=== PATIENT | female | born 1960 | race Caucasian/White ===

== ENCOUNTER 2022-03-28 14:37 | Emergency (ER) | payer BC ==
[~2022-03-28] VITALS: Ht 152.4 cm; Wt 62.7 kg
[2022-03-28] VITALS (15 sets, daily range): BP systolic 161–188; BP diastolic 72–90
[2022-03-28] MEDS ORDERED: TRESIBA FL200 UNIT/M IN (14:52)
[2022-03-28] MEDS ORDERED: COLESTID1 GM PO (14:53)
[2022-03-28] MEDS ORDERED: CYCLOBENZAPRINE10 MG PO (14:53)
[2022-03-28] MEDS ORDERED: METOPROLOL SUCC50 MG PO (14:54)
[2022-03-28] MEDS ORDERED: PRAVASTATIN20 MG PO (14:54)
[2022-03-28] MEDS ORDERED: LISINOP/HCTZ1 TAB PO (14:55)
[2022-03-28 15:39] LABS: HEMOGLOBIN 13.8 g/dl (12.0-16.0); IMMATURE GRANULOCYTES 0.1 % (0.0-5.0); MEAN CELL VOLUME 86.2 fL CALC (80.0-100.0); MEAN CORPUSCULAR HGB 28.3 pG CALC (26.0-32.0); MEAN CORPUSCULAR HGB CONC 32.9 g/dL CAL (32.0-36.0); NEUT# 5.83 thou/uL (2.00-7.15); RED BLOOD COUNT 4.87 mill/uL (4.20-5.60); RED CELL DISTRI WIDTH 12.3 % (11.5-15.5)
[2022-03-28 16:03] LABS: ALBUMIN 4.4 g/dL (3.2-5.0); ALKALINE PHOSPHATASE 131 u/l (38-126); ANION GAP 16 (6-22 (CALC)); BILIRUBIN, TOTAL 0.4 mg/dL (0.0-1.4); BUN 15 mg/dL (7-17); BUN/CREATININE RATIO 22 (12-20 (CALC)); CARBON DIOXIDE 24 mmol/l (22-30); CHLORIDE 104 mmol/l (95-108); CREATININE 0.7 mg/dL (0.5-1.0); GFR FOR AFR.AMER. > 60 ML/MIN (>=60 (CALC)); GFR OTHER RACES > 60 ML/MIN (>=60 (CALC)); LIPASE 52 u/l (23-300); POTASSIUM 3.5 mmol/l (3.5-5.1); SGOT/AST 73 u/l (14-36); SODIUM 140 mmol/l (137-146); TOTAL PROTEIN 7.6 g/dL (6.3-8.2)
[2022-03-28 17:43] LABS: URINE BILIRUBIN - DIPSTICK NEGATIVE (NEGATIVE); URINE BLOOD DIPSTICK NEGATIVE (NEGATIVE); URINE COLOR YELLOW; URINE GLUCOSE - DIPSTICK 100 mg/dL (NEGATIVE); URINE KETONE 15 mg/dL (NEGATIVE); URINE LEUK ESTERASE NEGATIVE (NEGATIVE); URINE PROTEIN - DIPSTICK NEGATIVE (NEG-TRACE); URINE UROBILINOGEN - DIPSTICK 0.2 E.U./dL (0.2)
[2022-03-28 17:47] LABS: URINE NITRITE - DIPSTICK NEGATIVE (Negative)
[2022-03-28] MEDS ORDERED: ZOFRAN4 MG/TAB PO (19:13)
[2022-03-28] MEDS ORDERED: CIPROFLOXACN500 MG PO (19:13)
[2022-03-28] MEDS ORDERED: METRONIDAZOLE500 MG PO (19:13)
== END 2022-03-28 19:48 | disposition home or self-care (01) | DRG 392 ==
LOC: ED 14:37
PROVIDERS: Family Medicine
DX: R11.2 Nausea with vomiting, unspecified (principal); R10.9 Unspecified abdominal pain; E11.9 Type 2 diabetes mellitus without complications; I10 Essential (primary) hypertension; Z95.5 Presence of coronary angioplasty implant and graft; I25.2 Old myocardial infarction; E78.5 Hyperlipidemia, unspecified; Z79.4 Long term (current) use of insulin
CPT/HCPCS: Q9967

== ENCOUNTER 2024-03-30 09:20 | Emergency (ER) | payer OTHER ==
[2024-03-30] VITALS (7 sets, daily range): BP systolic 122–193; BP diastolic 62–79
[~2024-03-30] VITALS: Ht 152.4 cm; Wt 63.9 kg
[~2024-03-30 09:20] MED LIST: CIPROFLOXACN500 MG PO; COLESTID1 GM PO; COLESTIPOL1 GM PO; CYCLOBENZAPRINE10 MG PO; LANTUS100 UNIT SC; LISINOP/HCTZ1 TA1 PO; LISINOPRIL10 MG PO; METOPROL TAR25 MG PO; METRONIDAZOLE500 MG PO; ONDANSETRON4 MG PO; PROTONIX40 M2 PO; ROSUVASTATIN CA20 MG PO; TRESIBA FL200 UNIT/M IN; ZOFRAN4 MG/TAB PO
[2024-03-30] MEDS ORDERED: ALUM & MAG HYDROX-SIMETHICONE 30 ML PO ONE (09:45)
[2024-03-30] MEDS ORDERED: LIDOCAINE VISCOUS 2% 15 ML UDC PO ONE (09:45)
[2024-03-30] MEDS ORDERED: ONDANSETRON HCl 4 MG/2 ML SDV IV ONE (09:45)
[2024-03-30] MEDS ORDERED: SODIUM CHLORIDE 0.9% 1,000 ML IV ONE (09:45)
[2024-03-30 09:50] LABS: BASO% 0.9 % (0-3); EOS% 3.5 % (0-8); IMMATURE GRANULOCYTES 0.2 % (0.0-5.0); LYMPH% 20.1 % (15-41); MEAN CELL VOLUME 90.1 fL CALC (80.0-100.0); MEAN CORPUSCULAR HGB 28.2 pG CALC (26.0-32.0); MEAN CORPUSCULAR HGB CONC 31.3 g/dL CAL (32.0-36.0); MONO% 6.3 % (2-13); NEUT# 6.19 thou/uL (2.00-7.15); RED BLOOD COUNT 5.36 mill/uL (4.20-5.60); RED CELL DISTRI WIDTH 13.1 % (11.5-15.5); URINE BLOOD DIPSTICK Negative (NEGATIVE); URINE GLUCOSE - DIPSTICK 100 mg/dL (NEGATIVE); URINE KETONE Trace mg/dL (NEGATIVE); URINE LEUK ESTERASE Negative (NEGATIVE); URINE NITRITE - DIPSTICK Negative (Negative); URINE PH 5.5 (4.5-8.0); URINE PROTEIN - DIPSTICK 100 mg/dL (NEG-TRACE); URINE SPECIFIC GRAVITY >=1.030; URINE UROBILINOGEN - DIPSTICK 0.2 E.U./dL (0.2)
[2024-03-30 09:51] LABS: HEMATOCRIT 48.3 % (37.0-47.0); HEMOGLOBIN 15.1 g/dl (12.0-16.0); URINE COLOR Yellow
[2024-03-30 10:01] LABS: URINE SQUAMOUS EPITHELIAL CELL MANY EPI/hpf (0-FEW)
[2024-03-30 10:03] LABS: URINE BACTERIA MODERATE hpf; URINE RBC 0-2 RBC/hpf (0-5)
[2024-03-30 10:04] LABS: ANION GAP 19 (6-22 (CALC)); BUN 24 mg/dL (8-23); BUN/CREATININE RATIO 27 (12-20 (CALC)); CARBON DIOXIDE 28 mmol/l (22-30); CHLORIDE 99 mmol/l (95-108); CREATININE 0.9 mg/dL (0.5-1.0); ESTIMATED GFR 73 ML/MIN (>=90 (CALC)); LIPASE 87 u/l (23-300); POTASSIUM 4.1 mmol/l (3.5-5.1); SODIUM 142 mmol/l (137-146); URINE HYALINE CAST FEW lpf (NONE-RARE); URINE MUCUS FEW hpf (NONE-FEW)
[2024-03-30] MEDS ORDERED: ISOVUE-300 (Iopamidol) 100 ML SDV IV ONE (10:05)
[2024-03-30 10:26] LABS: ALBUMIN 5.1 g/dL (3.2-5.0); ALKALINE PHOSPHATASE 137 u/l (38-126); BILIRUBIN, TOTAL 0.9 mg/dL (0.02-1.3); SGOT/AST 69 u/l (9-36); TOTAL PROTEIN 8.6 g/dL (6.3-8.2)
[2024-03-30] MEDS ORDERED: PROMETHAZINE HCL 25 MG/ML AMP IM ONE (11:50)
[2024-03-30] MEDS ORDERED: NITROFURANTN100 M2 PO (11:52)
== END 2024-03-30 12:11 | disposition home or self-care (01) | DRG 392 ==
LOC: ED 09:20
PROVIDERS: Family Medicine
DX: R11.2 Nausea with vomiting, unspecified (principal)
CPT/HCPCS: Q9967

== ENCOUNTER 2024-06-26 17:01 | Emergency (ER) | payer OTHER ==
[~2024-06-26] VITALS: Ht 152.4 cm; Wt 81.6 kg
[2024-06-26] VITALS (20 sets, daily range): BP systolic 128–173; BP diastolic 73–97
[~2024-06-26 17:01] MED LIST changes: +NITROFURANTN100 M2 PO
[2024-06-26] MEDS ORDERED: ASPIRIN 81 MG/TAB PO ONE (17:10)
[2024-06-26] MEDS ORDERED: NITROGLYCERIN 0.4 MG/TAB SL ONE (17:25)
[2024-06-26] MEDS ORDERED: NITROGLYCERIN IN D5W 250 ML IV ONE (17:30)
[2024-06-26] MEDS ORDERED: SODIUM CHLORIDE 0.9% 250 ML IV PRN (17:30)
[2024-06-26] MEDS ORDERED: Heparin SODIUM (Porcine) 5,000 UNITS/ML SDV IV ONE (17:30)
[2024-06-26] MEDS ORDERED: Heparin SODIUM (Porcine) 500 ML IV ONE (17:30)
[2024-06-26 17:56] LABS: BASO% 0.4 % (0-3); EOS% 1.5 % (0-8); HEMATOCRIT 45.5 % (37.0-47.0); HEMOGLOBIN 14.7 g/dl (12.0-16.0); IMMATURE GRANULOCYTES 0.1 % (0.0-5.0); LYMPH% 14.7 % (15-41); MEAN CELL VOLUME 87.7 fL CALC (80.0-100.0); MEAN CORPUSCULAR HGB 28.3 pG CALC (26.0-32.0); MEAN CORPUSCULAR HGB CONC 32.3 g/dL CAL (32.0-36.0); MONO% 4.8 % (2-13); NEUT# 7.23 thou/uL (2.00-7.15); NEUT% 78.5 % (42-76); RED BLOOD COUNT 5.19 mill/uL (4.20-5.60)
[2024-06-26] MEDS ORDERED: ONDANSETRON HCl 4 MG/2 ML SDV IV ONE (18:10)
[2024-06-26 18:14] LABS: ALBUMIN 4.7 g/dL (3.2-5.0); BILIRUBIN, TOTAL 0.8 mg/dL (0.02-1.3); CREATININE 0.8 mg/dL (0.5-1.0); POTASSIUM 3.6 mmol/l (3.5-5.1); TOTAL PROTEIN 7.9 g/dL (6.3-8.2)
== END 2024-06-26 19:21 | disposition short-term general hospital (02) | DRG 282 ==
LOC: ED 17:01
PROVIDERS: Family Medicine
DX: I21.3 ST elevation (STEMI) myocardial infarction of unspecified site (principal); I10 Essential (primary) hypertension; E11.9 Type 2 diabetes mellitus without complications; I25.10 Atherosclerotic heart disease of native coronary artery without angina pectoris; I25.2 Old myocardial infarction; Z79.4 Long term (current) use of insulin
CPT/HCPCS: J1644; J2305; J2405

== ENCOUNTER 2024-07-02 11:13 | Emergency (ER) | payer OTHER ==
[~2024-07-02] VITALS: Ht 152.4 cm; Wt 65.0 kg
[2024-07-02] VITALS (9 sets, daily range): BP systolic 151–184; BP diastolic 65–89
[2024-07-02] MEDS ORDERED: PROMETHAZINE HCL 25 MG/ML AMP IV ONE (12:15)
[2024-07-02] MEDS ORDERED: SODIUM CHLORIDE 0.9% 1,000 ML IV ONE ×2 (12:15→14:20)
[2024-07-02 12:27] LABS: BASO% 0.3 % (0-3); EOS% 3.5 % (0-8); IMMATURE GRANULOCYTES 0.1 % (0.0-5.0); LYMPH% 17.5 % (15-41); MEAN CELL VOLUME 92.5 fL CALC (80.0-100.0); MEAN CORPUSCULAR HGB 28.6 pG CALC (26.0-32.0); MONO% 5.5 % (2-13); NEUT# 6.63 thou/uL (2.00-7.15); NEUT% 73.1 % (42-76); RED BLOOD COUNT 4.54 mill/uL (4.20-5.60); RED CELL DISTRI WIDTH 12.8 % (11.5-15.5)
[2024-07-02 12:35] LABS: ALBUMIN 4.1 g/dL (3.2-5.0); BILIRUBIN, TOTAL 0.9 mg/dL (0.02-1.3); CREATININE 0.8 mg/dL (0.5-1.0)
[2024-07-02] MEDS ORDERED: INSULIN REGULAR (HUMAN) 100 UNIT/ML INJ IV ONE (14:20)
[2024-07-02 14:21] LABS: URINE BILIRUBIN - DIPSTICK Negative (NEGATIVE); URINE BLOOD DIPSTICK Negative (NEGATIVE); URINE GLUCOSE - DIPSTICK 250 mg/dL (NEGATIVE); URINE KETONE Trace mg/dL (NEGATIVE); URINE LEUK ESTERASE Negative (NEGATIVE); URINE NITRITE - DIPSTICK Negative (Negative); URINE PROTEIN - DIPSTICK 30 mg/dL (NEG-TRACE); URINE SPECIFIC GRAVITY 1.025
[2024-07-02 14:23] LABS: URINE COLOR Yellow
[2024-07-02 14:29] LABS: URINE BACTERIA MODERATE hpf; URINE MUCUS FEW hpf (NONE-FEW); URINE RBC 0-2 RBC/hpf (0-5); URINE SQUAMOUS EPITHELIAL CELL MODERATE EPI/hpf (0-FEW)
[2024-07-02 14:30] LABS: URINE HYALINE CAST FEW lpf (NONE-RARE)
[2024-07-02] MEDS ORDERED: ZOFRAN4 MG/TAB PO (16:27)
== END 2024-07-02 16:40 | disposition home or self-care (01) | DRG 392 ==
LOC: ED 11:13
PROVIDERS: Emergency Medicine
DX: R11.2 Nausea with vomiting, unspecified (principal); E86.0 Dehydration; I10 Essential (primary) hypertension; E11.9 Type 2 diabetes mellitus without complications; I25.2 Old myocardial infarction; Z95.5 Presence of coronary angioplasty implant and graft; Z79.4 Long term (current) use of insulin
CPT/HCPCS: J2550